=== PATIENT | female | born 1965 | race Caucasian/White ===

== ENCOUNTER → 2016-07-25 | Outpatient (CLI) | payer OTHER ==
[~2016-07-25] MED LIST: IBUPROFEN800 MG PO; LEXAPRO5 MG/5 ML; LOPRESSOR; NAPROSYN375 MG PO; NO MEDICATIONS; NORFLEX100 M1 PO; PERCOCET PO; VISTARIL
--- NOTE | ~2016-07-25 | HM ---
Unit #: [id number] #: [id number] Patient: KUMAR DEL VALLE [id number] [address] [place], [place] [address] [id number] O MR#: [id number] NAME: KUMAR DEL VALLE : 1965 SEX: F STUDY DATE/TIME: 07/30/2016 UNIT: CE[facility] ROOM: STUDY DESCRIPTION: Holter monitor Attending Physician: Daysi Kirby A.P.R.N. Referring Physician: Daysi Kirby A.P.R.N. Primary Care Physician: Daysi Kirby A.P.R.N. CARDIOLOGY REPORT EXAM Holter monitor. DATE APPLIED July 25, 2016. DATE SCANNED July 29, 2016. ORDERED BY Daysi Kirby A.P.R.N. READ BY Andre Solorzano M.D. INDICATION Palpitations. SUMMARY The patient was monitored for 24 hours. A total of 120,947 QRS complexes were analyzed. The average heart rate was 88 beats per minute. The rhythm was sinus. There were nonspecific ST changes noted throughout. The minimum heart rate of 67 beats per minute occurred at 10:38 a.m., and the maximum heart rate of 133 beats per minute occurred at approximately 9:45 p.m. There were no pauses. SUPRAVENTRICULAR ECTOPY: There were 31 isolated beats with one 4-beat run. There were several couplets also noted. The 4-beat run occurred at 9:45 p.m., 4 beats in duration, 202 beats per minute; however, in reviewing this run, this was actually not an SVT run but simply sinus rhythm with artifact present. Thus, there is no SVT run. VENTRICULAR ECTOPY: There were 31 isolated beats. The recording suggests that there is one VT run; however, this is not a VT run. This is sinus rhythm with ectopy. IMPRESSION 1. Normal Holter monitor with benign and simple supraventricular and ventricular ectopy. 2. No ventricular or supraventricular runs noted. Dictated by... Unit #: [id number] #: [id number] Patient: KUMAR DEL VALLE Kimberlyn Cummings/elton TD: 07/31/2016 07:49 JOB #: [id number] CARDIOLOGY REPORT X Andre Solorzano MD HOLTER MONITOR REPORT
== END | disposition home or self-care (01) ==
LOC: CEKG 08:26
DX: R00.2 Palpitations (principal)
CPT/HCPCS: 93225; 93226

== ENCOUNTER → 2016-07-26 | Outpatient (CLI) | payer OTHER ==
--- NOTE | ~2016-07-26 | MY11 ---
[facility] A Service of [facility] & [facility] RADIOLOGY TEXT RESULTS PATIENT: KUMAR DEL VALLE LOCATION: [facility] : [birth year] UNIT #: [id number] AGE: [address]: Alex Baig MD SEX: F ORDER DR: [id number] [facility] [address] [place], [place] [address] [id number] O MR#: [id number] Acc #: [id number] NAME: KUMAR DEL VALLE : 1965 SEX: F STUDY DATE/TIME: 07/26/2016 15:41 UNIT: [facility] ROOM: STUDY DESCRIPTION: MY Mammogram Screening Dig Srinivas Attending Physician: Alex Baig M.D. Ordering Physician: Alex Baig M.D. Primary Care Physician: Alex Baig M.D. MEDICAL IMAGING REPORT This report is preliminary unless electronic signature is present EXAM Bilateral digital screening mammogram with CAD 07/26/2016 INDICATION 51-year-old female for routine screening. No reported problems. No personal history of breast cancer. Family history positive in the patient's grandmother. No surgeries. (The paperwork/documentation for this study will be scanned into the DR system later. The 2 scanners here in the department are not operational. The patient information and history has been provided to me by the technologist in paper form at the time of this dictation). TECHNIQUE CC and MLO views of the breasts were obtained and reviewed with an FDA-approved CAD device. This is her baseline study. There are no comparisons. FINDINGS Breast parenchyma is composed of scattered fibroglandular densities. The pattern is symmetric. In the 3 o'clock position left breast, there is a 17 x 12 mm lobulated nodule present at middle to posterior third depth. This may represent an intramammary node but it does not have classic imaging features for an intramammary node mammographically. It could also represent a cyst. Suggest further evaluation with dedicated ultrasound. Additional mammographic views are not thought to offer additional diagnostic benefit. There is otherwise no suspicious nodule in either breast. There are benign calcifications including calcified oil cyst. IMPRESSION There is a nodule at 3 o'clock in the left breast that warrants further evaluation with ultrasound. Patients over the age of 40 are entered into a reminder system with target STS. [facility] A Service of [facility] RADIOLOGY TEXT RESULTS PATIENT: KUMAR DEL VALLE LOCATION: [facility] : 65 UNIT #: [id number] AGE: [address]: Alex Baig MD SEX: F ORDER DR: due date for the next mammogram. A result letter will also be sent to the patient. BIRADS: 0 Incomplete: Need additional imaging evaluation and/or prior mammograms for comparison Dictated by... John Lyons M.D. THIS IS AN ELECTRONICALLY VERIFIED REPORT John Lyons M.D. at 07/27/2016 10:16 AM MAIA/james TD: 07/27/2016 06:01 JOB #: [id number] MEDICAL IMAGING REPORT COPY
== END | disposition home or self-care (01) ==
LOC: CWCC 15:15
DX: Z12.31 Encounter for screening mammogram for malignant neoplasm of breast (principal); Z80.3 Family history of malignant neoplasm of breast; N63 Unspecified lump in breast
CPT/HCPCS: G0202

== ENCOUNTER → 2016-08-14 | Outpatient (CLI) | payer OTHER ==
--- NOTE | ~2016-08-14 | US24 ---
[facility] A Service of [facility] & [facility] RADIOLOGY TEXT RESULTS PATIENT: KUMAR DEL VALLE LOCATION: [facility] : 65 UNIT #: [id number] AGE: [address]: Daysi KirbyP SEX: F ORDER DR: [id number] [facility] [address] [place], [place] [address] [id number] O MR#: [id number] Acc #: [id number] NAME: KUMAR DEL VALLE : 1965 SEX: F STUDY DATE/TIME: 08/14/2016 9:23 UNIT: [facility] ROOM: STUDY DESCRIPTION: US Breast Unilateral Attending Physician: Daysi Kirby A.P.R.N. Ordering Physician: Daysi Kirby A.P.R.N. Primary Care Physician: Alex Baig M.D. MEDICAL IMAGING REPORT This report is preliminary unless electronic signature is present EXAM Left breast ultrasound, 08/14/2016. HISTORY Screening mammogram obtained 07/26/2016 demonstrated a 17 mm x 12 mm lobulated nodule located in the upper outer quadrant of the left breast. Ultrasound was recommended for further evaluation. FINDINGS Ultrasound of the left breast was performed demonstrating a 4 mm complicated cystic lesion containing a solid component along its wall which is an indeterminate finding. It may simply represent a complicated cyst or possibly a degenerating fibroadenoma. Also at the 3 o'clock position, there is a multiseptated cystic lesion measuring 8 mm x 6 mm. At the 4 o'clock position, there is a 4 mm complicated cystic lesion again with solid components along its anterior wall. None of the 3 lesions directly correspond to the mammographic abnormality which may in fact represent an intramammary lymph node. Recommend followup left breast ultrasound and left mammogram in 6 months to assess the lesions for stability. IMPRESSION 3 indeterminate partially cystic lesions located at the 3 and 4 o'clock positions respectively of the left breast. The lesions do not correspond to the mammographic abnormality which may in fact represent an intramammary lymph node. Followup left mammogram and left breast ultrasound in 6 months is recommended to assess these probably benign findings for stability. Patients over the age of 40 are entered into a reminder system with target due date for the next mammogram. A result letter will also be sent to the patient. [facility] A Service of [facility] & [facility] RADIOLOGY TEXT RESULTS PATIENT: KUMAR DEL VALLE LOCATION: [facility] : 65 UNIT #: [id number] AGE: [address]: Daysi Kirby SEX: F ORDER DR: BIRADS: 3 Probably benign finding; short interval follow-up suggested. STAT * RESULT Dictated by... Jefe Rockwell M.D. THIS IS AN ELECTRONICALLY VERIFIED REPORT Jefe Rockwell M.D. at 08/16/2016 8:26 AM HINA/candace TD: 08/14/2016 09:56 JOB #: [id number] MEDICAL IMAGING REPORT Page 1 of 1 COPY
== END | disposition home or self-care (01) ==
LOC: CMAM 08:09
DX: R92.8 Other abnormal and inconclusive findings on diagnostic imaging of breast (principal); N60.12 Diffuse cystic mastopathy of left breast
CPT/HCPCS: 76641